=== PATIENT | female | born 1970 | race Caucasian/White ===

== ENCOUNTER 2022-01-20 23:33 | Emergency (ER) | payer MEDICAID, SELFPAY ==
[2022-01-20 23:36] VITALS: BP 130/83; PULSE 80; RESP 18; TEMP 36.8; O2SAT 99; BMI 31.3
--- NOTE | 2022-01-21 00:21 | ED.NURSE ---
two rings removed per pt permission. CMS to finger remained. Rights placed in container and given to pt.
--- OUTSIDE RECORDS SUMMARY | 2022-01-21 00:28 | XMS_ITS | Clinical Summary ---
:1970 Author Organization [facility] [place] [address] Care Team Providers Name Role Phone Mira Cherry PA-C Primary Care Provider Allergies Active Allergy Reactions Severity Noted Date Comments Cyclobenzaprine Sleep Disturbances 01/09/2008 Gabapentin Headache Low 08/31/2013 Sumatriptan Edema 03/24/2013 Morphine Hives, Vomiting 01/09/2008 Oxycodone-Acetaminophen Hives, Edema 01/09/2008 Medications Medication Sig Dispensed Refills Start Date End Date Status IBUPROFEN 200 MG take 1 tablet (200 0 01/09/2008 Active TABIndications: Neck mg) by oral route pain every 6 hours as needed with food CERVICAL TRACTION For home use. 1 0 02/10/2008 Active KIT IBUPROFEN 800 MG TAB take 1 tablet (800 60 3 02/10/2008 Active mg) by oral route 3 times per day with food traZODone (DESYREL) Take 1-3 tablets by 36 tablet 2 08/31/2013 Active 50 mg tablet mouth at bedtime. phentermine Take 1 Cap by mouth 30 capsule 0 11/15/2013 Active (IONAMIN) 15 mg daily capsule clobetasol 0.05% Apply topically to 50 mL 0 11/15/2013 Active TOPICAL (TEMOVATE) affected area(s) to 0.05 % external scalp at bedtime as solution needed Clobetasol Shampoo daily as 118 mL 0 11/15/2013 A ctive Propionate 0.05 % needed shampoo Clobetasol Use daily as needed 118 mL 1 12/15/2013 Active Propionate 0.05 % shampoo Phentermine HCl 30 Take 1 capsule by 30 capsule 0 12/15/2013 Active mg capsule mouth once daily. trimethoprim-sulfame Take 1 tablet by 10 tablet 0 02/12/2014 Active thoxazole, 160-800 mouth 2 times daily mg, (BACTRIM DS) for 5 days. tablet ciprofloxacin Take 1 tablet by 14 tablet 0 03/26/2014 Active (CIPRO) 500 mg mouth 2 times tablet daily. Phentermine HCl 30 Take 1 capsule by 30 capsule 0 06/04/2014 Active mg capsule mouth once daily. zolpidem (AMBIEN) 5 Take 1 tablet by 30 tablet 0 06/04/2014 Active mg tablet mouth at bedtime if needed. Clobetasol Apply and shampoo 118 mL 5 06/04/2014 Active Propionate 0.05 % to affected areas shampoo daily leave on 15 minutes before lathering & rinsing Phentermine HCl 30 Take 1 capsule by 30 capsule 0 06/04/2014 Active mg capsule mouth once daily (Do not fill until 07/05/14) HYDROcodone-acetamin Take 1 tablet by 36 tablet 0 03/25/2015 Active ophen, 5-325 mg, mouth every 6 hours (NORCO) per if needed. Max tabletIndications: acetaminophen dose: Lumbar radicular 4000mg in 24 hrs. pain, Displacement of lumbar intervertebral disc without myelopathy Active Problems Problem Noted Date Lumbar radicular pain 01/28/2015 Cervical disc displacement at C5-6 07/27/2013 Cervical radicular pain 07/27/2013 Displacement of lumbar intervertebral disc without mye lopathy 06/30/2012 Resolved Problems Problem Noted Date Resolved Date Cervical disc displacement 07/19/2013 07/27/2013 Displacement of cervical intervertebral disc without 008 06/30/2012 myelopathy Family History Medical History Relation Name Comments Cancer-breast Maternal Grandmother Cancer-breast Paternal Grandmother Relation Name Status Comments Maternal Grandmother Paternal Grandmother Social History Tobacco Use Types Packs/Day Years Used Date Never Smoker Tobacco Cessation: Counseling Given: Yes Alcohol Use Standard Drinks/Week Comments No 0 (1 standard drink = 0.6 oz pure alcoho l) Sex Assigned at Date Recorded Not on file Obstetrics History Last Filed Vital Signs Vital Sign Reading Time Taken Comments Blood Pressure 114/78 08/31/2013 8:17 AM CDT Pulse 74 08/31/2013 8:17 AM CDT Temperature 36.9 ??C (98.5 ??F) 08/31/2013 8:17 AM CDT Respiratory Rate - - Oxygen Saturation 95% 08/31/2013 8:17 AM CDT Inhaled Oxygen Concentration - - Weight 92.5 kg (204 lb) 08/31/2013 8:17 AM CDT Height 172.7 cm (5' 7.99) 08/31/2013 8:17 AM CDT Body Mass Index 31.03 08/31/2013 8:17 AM CDT Plan of Treatment Health Maintenance Due Date Last Done Comments COVID-19 vaccine series (#1) 05/02/1973 Tdap 10/31/1983 Depression screening for age 12+ 1984 BMI (ht and wt on same day) for age 0810/30/1990 18+ Hepatitis C screening for age 18-79 1990 Tetanus booster 1992 Pap test for age 21-65 07/03/2016 07/03/2013, 07/03/2013, 04/18/2010 Colonoscopy through age 75 2017 Lipids for age 45-75 2017 Mammogram for age 45-75 2017 07/27/2013 Influenza for age 9-49 11/27/2021 Results Not on filefrom Last 3 Months Insurance Payer Benefit Plan / Subscriber ID Effective Dates Phone Addre ss Type Group [employer] [place] [id number] 2020-Present [address] [place] [address] Care Teams [employer] Work[employer] Relationship Specialty Start Date End Date Mira Cherry PA-C PCP - General Physician [employer] 07/31/20 [address] [place] [address]
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
== END 2022-01-21 00:35 | disposition home or self-care (01) ==
LOC: ED 01-21 00:26
PROVIDERS: Emergency Provider Family Medicine; PCP Physician Assistant Medical
DX: S60.042A Contusion of left ring finger without damage to nail, initial encounter (principal); W23.0XXA Caught, crushed, jammed, or pinched between moving objects, initial encounter
CPT/HCPCS: 99281; 99282; 99283

== ENCOUNTER 2022-01-28 15:17 | Outpatient (CLI) | payer MEDICAID, SELFPAY ==
[2022-02-02 14:09] LABS: B pertussis IgG Immblot PT100 Equivocal; B pertussis IgG Immunoblot FHA Positive; B pertussis IgG Immunoblot PT Positive
== END 2022-01-28 15:18 | disposition home or self-care (01) ==
PROVIDERS: PCP Physician Assistant Medical; Visit Provider Family Medicine
DX: R05.9 Cough, unspecified (principal)
CPT/HCPCS: 86615